=== PATIENT | female | born 1990 | race Caucasian/White ===

== ENCOUNTER 2022-04-17 21:25 | Emergency (ER) | payer OTHER ==
[~2022-04-17] VITALS: Ht 170.2 cm; Wt 86.4 kg
[2022-04-17 21:29] VITALS: TEMP 97.5
[2022-04-17 22:21] VITALS: BP 117/81; PULSE 73
== END 2022-04-17 22:28 | disposition home or self-care (01) ==
LOC: COL.ER 21:25
DX: M79.604 Pain in right leg (principal); V49.40XA Driver injured in collision with unspecified motor vehicles in traffic accident, initial encounter